=== PATIENT | male | born 1965 | race Caucasian/White ===

== ENCOUNTER 2021-04-22 01:11 | Inpatient (IN) | payer MEDICAID ==
[~2021-04-22] VITALS: Ht 170.2 cm; Wt 94.3 kg
[2021-04-22 01:46] LABS: BASOPHILS % 0.6 % (0.0-2.0); EOSINOPHILS % 1.2 % (0.0-5.0); HEMATOCRIT. 40.9 % (42.0-52.0); HEMOGLOBIN. 14.6 g/dL (14.0-18.0); LYMPHOCYTES % 32.7 % (20.0-50.0); MEAN CORPUSCULAR HEMOGLOBIN 30.5 pg (28.0-32.0); MEAN CORPUSCULAR VOLUME 85.3 fL (80.0-94.0); MEAN PLATELET VOLUME 8.5 fl (7.4-10.4); MONOCYTES % 5.8 % (2.0-8.0); NEUTROPHILS % 59.7 % (40.0-76.0); PLATELET 144 x1000/uL (130-400); RED BLOOD CELL COUNT 4.79 mill/uL (4.7-6.1); RED CELL DISTRIBUTION WIDTH 13.3 % (11.6-14.6)
[2021-04-22 01:49] LABS: CHLORIDE 103 mEq/L (98-107)
[2021-04-22 01:54] LABS: ETHANOL BLOOD < 10 mg/dL
[2021-04-22 01:57] LABS: LDL CHOLESTEROL 43 mg/dL (5-100)
[2021-04-22 03:12] LABS: *AMPHETAMINES SCREEN URINE NEGATIVE (NEGATIVE); *BARBITURATES SCREEN URINE NEGATIVE (NEGATIVE); *BENZODIAZEPINES SCREEN URINE NEGATIVE (NEGATIVE); *COCAINE SCREEN URINE NEGATIVE (NEGATIVE); METHADONE URINE SCREEN NEGATIVE (NEGATIVE)
[2021-04-22 03:13] LABS: CANNABINOID URINE SCREEN NEGATIVE (NEGATIVE); OPIATES URINE SCREEN NEGATIVE (NEGATIVE); PHENCYCLIDINE URINE SCREEN NEGATIVE (NEGATIVE)
[2021-04-22] MEDS ORDERED: ASPIRIN 325MG EC TABLET PO ONE (03:30)
[2021-04-22] MEDS ORDERED: IOHEXOL-350 100 ML BOTTLE ONE (03:57)
[2021-04-22 05:01] LABS: PROTHROMBIN TIME 10.8 sec (9.6-11.0)
[2021-04-22 05:27] LABS: CLARITY URINE CLEAR (CLEAR); COLOR URINE YELLOW (YELLOW); PH URINE 5.5 (4.5-8.0); PROTEIN URINE NEGATIVE (NEGATIVE); SPECIFIC GRAVITY URINE 1.007 (1.005-1.030)
[2021-04-22 05:28] LABS: KETONES URINE NEGATIVE (NEGATIVE); LEUKOCYTE ESTERASE URINE NEGATIVE (NEGATIVE); NITRITE URINE NEGATIVE (NEGATIVE); OCCULT BLOOD URINE NEGATIVE (NEGATIVE); UROBILINOGEN URINE 0.2 E.U./dL (0.2-1.0)
[2021-04-22] MEDS ORDERED: DOCUSATE SODIUM 100MG CAPSULE PO PRN (11:30)
[2021-04-22] MEDS ORDERED: ONDANSETRON HCL 4MG/2ML INJ IV PRN (11:30)
[2021-04-22] MEDS ORDERED: NA PHOS,M-B/NA PHOS,DI-BA ENEMA 118ML PR PRN (11:30)
[2021-04-22] MEDS ORDERED: BLOOD SUGAR DIAGNOSTIC STRIP TEST SCH (11:30)
[2021-04-22] MEDS ORDERED: DEXTROSE 50% WATER 50ML SYRINGE IV PRN (14:00)
[2021-04-22 14:44] LABS: CHLORIDE 103 mEq/L (98-107)
[2021-04-22 14:55] LABS: PROTHROMBIN TIME 10.9 sec (9.6-11.0)
[2021-04-22] MEDS: BLOOD SUGAR DIAGNOSTIC STRIP TEST SCH ×2 (16:40→21:00)
[2021-04-22] MEDS: INSULIN LISPRO 100 UNITS/ML SUBCUT SCH ×2 (17:10→21:00)
[2021-04-22 17:29] VITALS: BP 130/87
[2021-04-22 17:32] VITALS: BP 130/87
[2021-04-22] MEDS ORDERED: METF-416 PO (17:48)
[2021-04-22] MEDS ORDERED: ATOR80TA PO (17:50)
[2021-04-22] MEDS ORDERED: FAMO-135 PO (17:50)
[2021-04-22] MEDS ORDERED: GABA-529 PO (17:50)
[2021-04-22] MEDS: ENOXAPARIN 40MG/0.4ML SYR SUBCUT SCH (18:24)
[2021-04-22 20:00] VITALS: BP 125/82
[2021-04-23] VITALS (8 sets, daily range): BP systolic 97–126; BP diastolic 59–80
[2021-04-23] MEDS: BLOOD SUGAR DIAGNOSTIC STRIP TEST SCH ×4 (05:46→20:57)
[2021-04-23] MEDS: INSULIN LISPRO 100 UNITS/ML SUBCUT SCH ×4 (06:14→21:03)
[2021-04-23] MEDS ORDERED: ASPIRIN 81MG EC TABLET PO SCH (09:00)
[2021-04-23] MEDS: ENOXAPARIN 40MG/0.4ML SYR SUBCUT SCH (12:33)
[2021-04-23] MEDS ORDERED: ASPI-986 MT (15:11)
[2021-04-23] MEDS ORDERED: ENOXAPARIN 30MG/0.3ML SYR SUBCUT SCH (22:00)
== END 2021-04-23 22:00 | disposition home or self-care (01) | DRG 45 ==
LOC: ER 01:11 → MICUSO 03:30 → 7EST 15:35
PROVIDERS: ADMIT Family Medicine; ATTEND Family Medicine
DX: I63.9 Cerebral infarction, unspecified (principal); E11.65 Type 2 diabetes mellitus with hyperglycemia; R20.2 Paresthesia of skin; E66.9 Obesity, unspecified; E78.5 Hyperlipidemia, unspecified; E78.1 Pure hyperglyceridemia; H53.8 Other visual disturbances; R20.0 Anesthesia of skin; I10 Essential (primary) hypertension; Z68.32 Body mass index [BMI] 32.0-32.9, adult
CPT/HCPCS: 36415; 70496; 70498; 70551; 71045; 80048; 80053; 80061; 80305; 80320; 81003; 82962; 83036; 83721; 83735; 84484; 85025; 85384; 93005; 93306; 97162; 99285; J1650; J1815; Q9967; G0480

== ENCOUNTER 2024-11-10 09:14 | Emergency (ER) | payer MEDICAID ==
[~2024-11-10] VITALS: Ht 167.6 cm; Wt 99.0 kg
[~2024-11-10 09:14] MED LIST: ASPI-986 MT; ATOR-388 PO; FAMO-135 PO; GABA-529 PO; METF-416 PO
[2024-11-10 09:16] VITALS: TEMP 36.7; O2SAT 96
[2024-11-10 10:02] LABS: BASOPHILS % 0.7 % (0.0-2.0); DIFFERENTIAL COMMENT 0; EOSINOPHILS % 0.5 % (0.0-5.0); HEMATOCRIT. 46.9 % (42.0-52.0); HEMOGLOBIN. 16.9 g/dL (14.0-18.0); LYMPHOCYTES % 36.2 % (20.0-50.0); MEAN CORPUSCULAR HEMOGLOBIN 32.9 pg (28.0-32.0); MEAN CORPUSCULAR VOLUME 91.3 fL (80.0-94.0); MEAN PLATELET VOLUME 8.6 fl (7.4-10.4); MONOCYTES % 6.3 % (2.0-8.0); NEUTROPHILS % 56.3 % (40.0-76.0); PLATELET 110 x1000/uL (130-400); RED BLOOD CELL COUNT 5.14 mill/uL (4.7-6.1); RED CELL DISTRIBUTION WIDTH 12.2 % (11.6-14.6); WHITE BLOOD COUNT 5.4 x1000/uL (4.5-11.0)
[2024-11-10 10:07] LABS: CHLORIDE 99 mEq/L (98-107); SODIUM 136 mEq/L (136-145)
[2024-11-10 10:08] LABS: CARBON DIOXIDE 24 mEq/L (21-32)
[2024-11-10 10:09] LABS: CALCIUM 9.2 mg/dL (8.7-10.4)
[2024-11-10 10:13] LABS: GLUCOSE 270 mg/dL (70-105); UREA NITROGEN BLOOD 11 mg/dL (9-23)
[2024-11-10] MEDS: DIAZEPAM 5 MG TABLET PO STA (10:17)
[2024-11-10] MEDS: ONDANSETRON 4MG ODT PO ONE (10:17)
[2024-11-10] MEDS: MECLIZINE 25MG TABLET PO STA (10:17)
[2024-11-10] MEDS ORDERED: DIAZ5TAB MT (10:57)
[2024-11-10] MEDS ORDERED: ONDA-239 PO (10:57)
[2024-11-10] MEDS ORDERED: MECL-299 MT (10:57)
[2024-11-10 11:23] VITALS: BP 138/94; PULSE 75; RESP 14; O2SAT 98
== END 2024-11-10 11:25 | disposition home or self-care (01) ==
LOC: ER 09:14
DX: R42 Dizziness and giddiness (principal); I10 Essential (primary) hypertension; E11.9 Type 2 diabetes mellitus without complications; Z98.890 Other specified postprocedural states; Z79.899 Other long term (current) drug therapy; Z79.82 Long term (current) use of aspirin
CPT/HCPCS: 99284; 70450; 80048; 85025; 36415; J8597; Q0162